=== PATIENT | female | born 1985 | race Caucasian/White ===

== ENCOUNTER 2016-11-20 06:54 | Inpatient (IN) | payer OTHER ==
[2016-11-20] MEDS ORDERED: TERBUTALINE SULFATE 1 MG/ML VIAL IV PRN (07:35)
[2016-11-20] MEDS ORDERED: LR 1,000 ML IV PRN (07:35)
[2016-11-20] MEDS ORDERED: EPSOM SALT 454 GM TP PRN (07:35)
[2016-11-20] MEDS ORDERED: OXYTOCIN/RINGERS LACTATE 1,000 ML IV PRN (07:35)
[2016-11-20] MEDS ORDERED: OLIVE OIL 118 ML BTL MISC PRN (07:35)
[2016-11-20] MEDS ORDERED: LR 500 ML IV PRN ×2 (07:53→11:01)
[2016-11-20] MEDS ORDERED: OXYTOCIN/RINGERS LACTATE 500 ML IV SCH ×2 (08:00→11:30)
[2016-11-20] MEDS ORDERED: AMPICILLIN SODIUM 2 GM in NS 100 ML IV ONE ×2 (08:18→09:30)
[2016-11-20] MEDS ORDERED: AMPICILLIN SODIUM 1 GM in NS 100 ML IV SCH (08:30)
[2016-11-20] MEDS ORDERED: CLINDAMYCIN 900 MG/DEXTROSE 50 ML IV SCH ×2 (08:45→14:00)
[2016-11-20 09:37] LABS: % IMMATURE GRANULYOCYTES 0.9 % (0.0-1.1); ADD DIFF? NO; ADD MORPH? NO; ADD SCAN? NO; ATYPICAL LYMPHOCYTE FLAG 0 (0-99); FRAGMENT RBC FLAG 10 (0-99); HEMATOCRIT 37.3 % (38.0-47.0); HEMOGLOBIN 12.8 g/dL (12.6-16.3); LEFT SHIFT FLG 0 (0-99); LIPEMIA HEMOLYSIS FLAG 90 (0-99); MEAN CELL HEMOGLOBIN 30.6 pg (27.9-34.1); MEAN CELL HEMOGLOBIN CONCENTR. 34.3 g/dL (32.4-36.7); MEAN CELL VOLUME 89.2 fL (81.5-99.8); MEAN PLATELET VOLUME 12.2 fL (8.7-11.7); PLATELET CLUMPS FLAG 20 (0-99); PLATELET COUNT 212 10^3/uL (150-400); RED BLOOD CELL COUNT 4.18 10^6/uL (4.18-5.33); RED CELL DISTRIBUTION WIDTH 13.8 % (11.5-15.2)
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
[2016-11-20] MEDS ORDERED: BETAMETHASONE IM SYRINGE IM ONE (11:01)
--- NOTE | 2016-11-20 11:05 | OBPROG ---
OBG Labor Progress Note Assessment/Plan: Assessment: 31 y/o @ 36 0/7 weeks with PPROM. Plan: I discussed with Dr. Maher the new recommendations for management of PPROM @ 36 weeks and we agree on one dose of Betamethasone but not to delay augmentation of labor with pitocin. Will order both. status is reassuring. 11/20/16 11:02 Subjective: Pt is doing well not feeling strong contractions. Objective: 11/20/16 09:10 Patient ABO/Rh A POSITIVE 11/20/16 09:10 - SVE Dilation (cm): 1 Effacement (%): 80 Station: -2 ICD10 Worksheet Patient Problems: Problems Problem Status Onset premature rupture of membranes (PPROM) with onset of labor after 24 hours of rupture in first trimester, antepartum Acute - ICD10 Problem Qualifiers (1) premature rupture of membranes (PPROM) with onset of labor after 24 hours of rupture in first trimester, antepartum
[2016-11-20] MEDS ORDERED: LIDOCAINE 1% 300 MG/30 ML SDV ONE (11:46)
[2016-11-20] MEDS ORDERED: OLIVE OIL 118 ML BTL ONE (11:46)
[2016-11-20] MEDS ORDERED: AMMONIA AROMATIC 1 EACH AMP IH ONE (11:47)
[2016-11-20] MEDS ORDERED: MISOPROSTOL 200 MCG TAB ONE (11:47)
[2016-11-20] MEDS ORDERED: TERBUTALINE SULFATE 1 MG/ML VIAL ONE (11:47)
[2016-11-20] MEDS ORDERED: OXYTOCIN 10 UNIT/ML VIAL ONE (11:47)
--- NOTE | 2016-11-20 13:53 | OBPROG ---
OBG Labor Progress Note Assessment/Plan: Assessment: 31 y/o @ 36 0/7 weeks with PPROM. Plan: Pt received 1 dose of BMZ and she is on pitocin and contractions are building. status is overall reassuring, however there are some variable and rare late decelerations in the heart rate. Overall, we have good variability and + response to scalp stimulation. We will continue continuous monitoring and induction of labor with pitocin and carefull monitor status as labor progresses. 11/20/16 11:02 11/20/16 13:50 Subjective: Pt is beginning to feel stronger contractions. She continues to have LOF, clear. Objective: 11/20/16 09:10 Patient ABO/Rh A POSITIVE 11/20/16 09:10 - SVE Dilation (cm): 2 Effacement (%): 75 Station: -2 Estes Current Contraction Pattern: Irregular FHR (bpm): 140 FHR Pattern Variability: Moderate FHR Category: 2 (some episodes of variable and late decelerations that are positional and + accels to scalp stim) Membranes: SROM Amniotic Fluid Color: Clear Oxytocin Orders Assessment - Pre-Induction/Augmentation Assessment Gestational Age: 36 week(s) and 0 day(s) ICD10 Worksheet Patient Problems: Problems Problem Status Onset premature rupture of membranes (PPROM) with onset of labor after 24 hours of rupture in first trimester, antepartum Acute - ICD10 Problem Qualifiers (1) premature rupture of membranes (PPROM) with onset of labor after 24 hours of rupture in first trimester, antepartum
[2016-11-20] MEDS: AMPICILLIN SODIUM 1 GM in NS 100 ML IV SCH ×3 (14:29→17:20)
[2016-11-20] MEDS ORDERED: fentaNYL 2MCG/ML/BUP 0.1% RTU 100 ML BAG EP ONE (14:42)
[2016-11-20] MEDS ORDERED: PHENYLEPHRINE HCL 100 MCG/ML SYR ONE (14:42)
[2016-11-20] MEDS ORDERED: BUPIVACAINE 0.25% 30 ML SDV ONE (14:42)
[2016-11-20] MEDS ORDERED: fentaNYL 100 MCG/2 ML INJ ONE (14:43)
--- NOTE | 2016-11-20 15:47 | PREANESOB ---
Obstetric Pre-Anesthesia Info - General Info Proposed Procedure: Labor and delivery with pitocin. : 2 Para: 1 WBD: 36 - Info Status: Premature Monitors: External FHR Pattern: Reassuring - Labor Status Cervical Dilation per last OB SVE: 2 Station per last OB SVE: -2 Pitocin: In Use Indications for Labor Analgesia: Induction of Labor, Pain Control Labor Epidural: Proposed (SROM.) Anesthesia ROS: Prior general anesthesia for D&C. Allergies/Adverse Reactions: Allergy/AdvReac Type Severity Reaction Status Date / Time cephalexin [From Keflex] Allergy Hives Verified 11/20/16 08:24 Visit Medications: Generic Name Dose Route Start Last Admin Trade Name Freq PRN Reason Stop Dose Admin Lactated Ringer's 1,000 mls @ 0 mls/hr 11/20/16 07:35 11/20/16 10:16 Lr IV 05/19/17 07:34 1,000 mls PRN PRN Administration SEE PROTOCOL CONDITIONS Protocol Per Protocol Oxytocin/Lactated Ringer's 1,000 mls @ 150 mls/hr 11/20/16 07:35 11/20/16 12: 17 Pitocin 20 Units/Lr (Premix) IV 1,000 mls PRN PRN Administration Post- bleeding Lactated Ringer's 500 mls @ 500 mls/hr 11/20/16 07:53 11/20/16 12:18 Lr IV 500 mls PRN PRN Administration Maternal Hypotension Oxytocin/Lactated Ringer's 500 mls @ 0 mls/hr 11/20/16 08:00 Pitocin 30 Units/Lr (Premix) IV 05/19/17 07:59 CONT ELIZABET Protocol Per Protocol Ampicillin Sodium 1 gm/ Sodium 100 mls @ 200 mls/hr 11/20/16 09:30 11/20/16 14:29 Chloride IV 12/20/16 09:29 100 mls Q4H ELIZABET Administration Protocol Lactated Ringer's 500 mls @ 500 mls/hr 11/20/16 11:01 Lr IV PRN PRN Maternal Hypotension Oxytocin/Lactated Ringer's 500 mls @ 0 mls/hr 11/20/16 11:30 Pitocin 30 Units/Lr (Premix) IV 05/19/17 11:29 CONT ELIZABET Protocol Per Protocol Ibuprofen 600 mg 11/20/16 07:35 Motrin PO 05/19/17 07:34 Q6HRS PRN post , inflammation Magnesium Sulfate 454 gm 11/20/16 07:35 Epsom Salt TP 05/19/17 07:34 Q1H PRN perineal discomfort Hollenberg Oil 118 ml 11/20/16 07:35 Sweet Oil MISC 05/19/17 07:34 ONCE PRN preneal massage Terbutaline Sulfate 0.25 mg 11/20/16 07:35 Brethine IV 05/19/17 07:34 ONCE PRN Tachysystole Discontinued Medications Generic Name Dose Route Start Last Admin Trade Name Freq PRN Reason Stop Dose Admin Ammonia (Aromatic Spirit) Confirm 11/20/16 11:47 Ammonia Aromatic Administered 11/20/16 11:48 Dose 1 each IH .STK-MED ONE Betamethasone Acet/Betameth SodPhos 12 mg 11/20/16 11:01 11/20/16 11:37 Celestone Im Syringe IM 11/20/16 11:02 12 mg ONCE ONE Administration Bupivacaine HCl Confirm 11/20/16 14:42 Sensorcaine 0.25% Sdv Administered 11/20/16 14:43 Dose 30 ml .ROUTE .STK-MED ONE Ephedrine Sulfate Confirm 11/20/16 11:47 Ephedrine Sulfate Administered 11/20/16 11:48 Dose 50 mg .ROUTE .STK-MED ONE Fentanyl Confirm 11/20/16 14:43 Sublimaze Administered 11/20/16 14:44 Dose 100 mcg .ROUTE .STK-MED ONE Fentanyl/Bupivacaine HCl Confirm 11/20/16 14:42 Fentanyl/Bupivacaine/Ns 2 Mcg/Ml 0.1% (Premix Administered 11/20/16 14:43 Dose 100 ml EP .STK-MED ONE Ampicillin Sodium 1 gm/ Sodium 100 mls @ 200 mls/hr 11/20/16 08:30 Chloride IV 12/20/16 08:29 Q4H ELIZABET Protocol Ampicillin Sodium 2 gm/ Sodium 110 mls @ 220 mls/hr 11/20/16 08:18 Chloride IV 11/20/16 08:47 ONCE ONE Protocol Ampicillin Sodium 2 gm/ Sodium 110 mls @ 220 mls/hr 11/20/16 09:30 11/20/16 10:16 Chloride IV 11/20/16 09:59 110 mls ONCE ONE Administration Lidocaine HCl Confirm 11/20/16 11:46 Lidocaine Hcl 1% Administered 11/20/16 11:47 Dose 300 mg .ROUTE .STK-MED ONE Misoprostol Confirm 11/20/16 11:47 Cytotec Administered 11/20/16 11:48 Dose 800 mcg .ROUTE .STK-MED ONE Hollenberg Oil Confirm 11/20/16 11:46 Sweet Oil Administered 11/20/16 11:47 Dose 118 ml .ROUTE .STK-MED ONE Oxytocin Confirm 11/20/16 11:47 Pitocin Administered 11/20/16 11:48 Dose 40 unit .ROUTE .STK-MED ONE Phenylephrine HCl Confirm 11/20/16 14:42 Neosynephrine Administered 11/20/16 14:43 Dose 1,000 mcg .ROUTE .STK-MED ONE Terbutaline Sulfate Confirm 11/20/16 11:47 Brethine Administered 11/20/16 11:48 Dose 1 mg .ROUTE .STK-MED ONE - Anesthesia History Response to Local Anesthetics: Normal Anesthesia & Operative History: No Prior Problems Family Anesthesia History: Negative - Social History Substance Use/Abuse: Denies - Focused Exam Blood Pressure: 118/67 Heart Rate: 81 Respiratory Rate: 18 Height/Weight (Nursing): Height 160.02 cm Weight 77.111 kg Physical Exam: WITHIN normal limits. ASA Status: II Labs: 11/20/16 09:10 Patient ABO/Rh A POSITIVE 11/20/16 09:10 - Plan Anesthetic Plan: CSE Consent Signed and on Chart: Yes Patient/Guardian Understands and Agrees to Plan: Yes Urgent/Emergent Case: Blayne rouse completed preop but documented later for safe timely pt care
[2016-11-20] MEDS ORDERED: PHENYLEPHRINE HCL 100 MCG/ML SYR IVP PRN (15:52)
[2016-11-20] MEDS ORDERED: ONDANSETRON 4 MG/2 ML VIAL IVP PRN (15:52)
--- NOTE | 2016-11-20 15:52 | POSTANESTH ---
Post Anesthetic Evaluation Cardiovascular Status: Normal, Stable, Tx Over/Under Hydration Respiratory Status: Normal, Stable Level of Consciousness/Mental Status: Can Participate in Eval, Alert and Oriented Pain Control: Adequate, Prn Tx Ordered Nausea/Vomiting Control: Adequate, Prn Tx Ordered Complications Possibly Related to Anesthesia: None Noted
[2016-11-20] MEDS ORDERED: fentaNYL 2MCG/ML/BUP 0.1% RTU 100 ML EP SCH (16:00)
[2016-11-20] MEDS ORDERED: LR 500 ML IV SCH (16:00)
--- NOTE | 2016-11-20 16:06 | OBPROG ---
OBG Labor Progress Note Assessment/Plan: Assessment: 31 y/o @ 36 0/7 weeks with PPROM. Plan: Pt is doing well now comfortable with her epidural. Good cervical progress and baby is stable now, we will re start pitocin @ 2 mU and attempt to create a adequate labor pattern. Observe closely. 11/20/16 11:0 11/20/16 13:50 11/20/16 16:05 Subjective: Pt is now comfortable with her epidural. Objective: 11/20/16 09:10 Patient ABO/Rh A POSITIVE 11/20/16 09:10 Temp Pulse Resp BP Pulse Ox 81 18 118/67 11/20/16 15:51 11/20/16 15:51 11/20/16 15:51 - SVE Dilation (cm): 5 Effacement (%): 90 Station: 0 Estes Current Contraction Pattern: Irregular FHR (bpm): 140 FHR Pattern Variability: Moderate FHR Category: 2 (occasional variable decelerations with prolonged contractions, now spontaneous accelerations) Membranes: SROM Amniotic Fluid Color: Clear Oxytocin Orders Assessment - Pre-Induction/Augmentation Assessment Gestational Age: 36 week(s) and 0 day(s) ICD10 Worksheet Patient Problems: Problems Problem Status Onset premature rupture of membranes (PPROM) with onset of labor after 24 hours of rupture in first trimester, antepartum Acute - ICD10 Problem Qualifiers (1) premature rupture of membranes (PPROM) with onset of labor after 24 hours of rupture in first trimester, antepartum
[2016-11-20] MEDS ORDERED: HYDROCORTISONE 0.5% CREAM TP PRN (18:26)
[2016-11-20] MEDS ORDERED: SIMETHICONE 80 MG TAB CHEW PO PRN (18:26)
[2016-11-20] MEDS ORDERED: ACETAMINOPHEN 325 MG TAB PO PRN (18:26)
[2016-11-20] MEDS ORDERED: MEASLES,MUMPS&RUBELLA VACC/PF 0.5 ML VIAL SC ONE (18:27)
--- NOTE | 2016-11-20 18:31 | OBDEL ---
Info Type: Vaginal GBS+: Yes (unknown due to pre-term) Antibiotic Used for + GBS: Ampicillin Number of Antibiotic Doses Given: 3 Indications for Delivery: SROM (PPROM @ 36 weeks) Vaginal Delivery - Labor and Delivery Onset of Contractions Date: 11/20/16 Onset of Contractions Time: 14:30 Onset of Contractions Type: Induced Rupture of Membranes Date: 11/20/16 Rupture of Membranes Time: 04:30 Rupture of Membranes Type: Spontaneous Amniotic Fluid Color: Clear Dilation Complete Date: 11/20/16 Dilation Complete Time: 17:30 Placenta Delivery Date: 11/20/16 Placenta Delivery Time: 18:14 Total Hours of Labor: 3 Laceration: Other (Specify) (intact perineum) Vaginal Sponge Count Correct: Yes Vaginal Needle Count Correct: Yes Vaginal Sweep Performed: Yes EBL: 150 Delivery Events: None - Medications Labor Augmentation/Induction Methods Used: Pitocin Labor Augmentation/Induction Indication: Other (Specify) (PPROM @ 36 weeks without spontaneous labor) Ovalo Data Estes Delivery Date: 11/20/16 Delivery Time: 18:04 LORI: 12/18/16 Gestational Age: 36 week(s) and 0 day(s) Sex of Infant: Male Score (1 Min): 7 Score (5 Min): 8 ICD10 Worksheet Patient Problems: Problems Problem Status Onset premature rupture of membranes (PPROM) with onset of labor after 24 hours of rupture in first trimester, antepartum Acute (spontaneous vaginal delivery) Acute - ICD10 Problem Qualifiers (1) premature rupture of membranes (PPROM) with onset of labor after 24 hours of rupture in first trimester, antepartum (2) (spontaneous vaginal delivery)
[2016-11-20] MEDS: IBUPROFEN 600 MG TAB PO PRN (18:44)
[2016-11-21] MEDS: IBUPROFEN 600 MG TAB PO PRN ×4 (01:33→20:17)
[2016-11-21] MEDS: HYDROCODONE/APAP 5/325 TAB PO PRN ×4 (04:50→21:24)
[2016-11-21] MEDS: DOCUSATE SODIUM 100 MG CAP PO PRN ×2 (07:50→20:17)
[2016-11-22] MEDS: IBUPROFEN 600 MG TAB PO PRN ×2 (04:15→11:55)
--- NOTE | 2016-11-22 08:15 | SOAPPROG ---
SOAP Progress Note Assessment/Plan: Assessment: p2 ppd# 2 s/p uncomplicated post course breast feeding Plan: routine post care discharge to [facility] 11/22/16 08:12 Subjective: patient is doing well. pain is well controlled. normal lochia. baby is doing well and will be discharged tomorrow. denies headache and changes in vision. pumping and breast feeding. Objective: Vital Signs Temp Pulse Resp BP Pulse Ox 36.6 C 81 16 105/70 96 11/21/16 20:00 11/21/16 20:00 11/21/16 20:00 11/21/16 20:00 11/21/16 20:00 Laboratory Results 11/20/16 09:10 11/21/16 11/22/16 11/23/16 05:59 05:59 05:59 Output Total 150 Balance -150 Physical Exam - Physical Exam General Appearance: WD/WN, alert, no apparent distress Neck: non-tender, full range of motion Respiratory: chest non-tender, lungs clear, normal breath sounds Cardiac/Chest: normal peripheral pulses, regular rate, rhythm Abdomen: normal bowel sounds, non-tender, soft, other (fundus firm and non tender) Skin: normal color, warm/dry Extremities: normal range of motion, non-tender, normal inspection, normal capillary refill Neuro/Psych: no motor/sensory deficits, alert, normal mood/affect, oriented x 3 ICD10 Worksheet Patient Problems: Problems Problem Status Onset premature rupture of membranes (PPROM) with onset of labor after 24 hours of rupture in first trimester, antepartum Acute (spontaneous vaginal delivery) Acute
--- NOTE | 2016-11-22 08:22 | OBGCSDC ---
General Delivery Information - General Info : 2 Para: 2 Delivery Physician/CNM: Apryl Lowe Labs: Patient ABO/Rh A POSITIVE 11/20/16 09:10 Hct 37.3 % (38.0-47.0) L 11/20/16 09:10 Group B Strep DNA NEGATIVE (NEGATIVE) 11/20/16 07:45 Vaginal - Diagnosis Labor: Induced Rupture of Membranes Type: Spontaneous Amniotic Fluid Color: Clear Laceration: Other (Specify) (intact perineum) Delivery Events: None - Operations/Procedures L&D Analgesia/Anesthesia Type: Epidural, Nitrous - Hospital Course Antepartum: hx retained placenta needing a d and c for g1. rubella non immune Intrapartum: srom at 430 am - at 36 weeks. ft/80, betamethazone, pitocin, epidural, pushed 3 x : baby to nicu, patient doing well. normal lochia. - Delivery L&D Analgesia/Anesthesia Type: Epidural, Nitrous Data Estes Delivery Date: 11/20/16 Delivery Time: 18:04 LORI: 12/18/16 Gestational Age: 36 week(s) and 2 day(s) Sex of Infant: Male [place] Weight (gm): 2770 g Score (1 Min): 7 Score (5 Min): 8 Discharge Information - Discharge Information Discharge Medications: Ibuprofen, Vitamins Condition: Good Instruction/Follow Up: Four Weeks, Six Weeks Discharge Physician/CNM: Briseyda Franz
[2016-11-22 08:57] VITALS: BP 115/71; PULSE 72; RESP 17; TEMP 98.5; O2SAT 94
[2016-11-22] MEDS: DOCUSATE SODIUM 100 MG CAP PO PRN (09:05)
[2016-11-22] MEDS: HYDROCODONE/APAP 5/325 TAB PO PRN ×3 (09:05→17:15)
== END 2016-11-22 17:41 | disposition home or self-care (01) | DRG 775 ==
LOC: OBSVTOIN 06:54 → FLD 06:54 → FOB 20:31
PROVIDERS: ADMIT Obstetrics & Gynecology; ATTEND Obstetrics & Gynecology
PROC: 10E0XZZ Delivery of Products of Conception, External Approach (ICD-10-PCS; principal; 2016-11-20)
DX: O42.013 Preterm premature rupture of membranes, onset of labor within 24 hours of rupture, third trimester (principal); Z37.0 Single live birth; Z3A.36 36 weeks gestation of pregnancy; O99.824 Streptococcus B carrier state complicating childbirth
CPT/HCPCS: J0290; J0702; J2370; J2590; J3010; J3105

== ENCOUNTER → 2017-12-23 | Outpatient (CLI) | payer OTHER | LOC: CIMAGING 12:06 → EDSTATUS 12:11 → CIMAGING 12:12 | PROVIDERS: ATTEND Family Medicine | DX: J18.9 Pneumonia, unspecified organism (principal); M41.84 Other forms of scoliosis, thoracic region | CPT/HCPCS: 71046-PO ==

== ENCOUNTER → 2018-01-08 | Outpatient (CLI) | payer OTHER | LOC: BMCIMAGING 11:01 | PROVIDERS: ATTEND Family Medicine | DX: J18.9 Pneumonia, unspecified organism (principal) ==

== ENCOUNTER 2018-10-08 07:50 | Observation (INO) | payer OTHER | END 2018-10-09 17:41 | disposition home or self-care (01) | LOC: F3N 07:50 → F3E 10:23 ==